=== PATIENT | female | born 1960 | race Caucasian/White ===

== ENCOUNTER 2016-08-08 13:06 | Observation (INO) | payer BC, OTHER ==
[~2016-08-08 13:06] MED LIST: HYDROmorphONE/DILAUDID 1 MG/ML SYR IVP ONE
--- NOTE | 2016-08-08 14:05 | EDPHY ---
H & P Stated Complaint: 08/04/16 cervical fusion Time Seen by Provider: 08/08/16 13:45 HPI/ROS: CHIEF COMPLAINT: Difficulty swallowing, neck pain decreased p.o. intake HISTORY OF PRESENT ILLNESS: This is a 55-year-old female presenting to the emergency department complaining of difficulty swallowing unable tolerate p.o. intake. Patient had a cervical fusion C3-4 C5-6 on August 04, discharged on August 05. Patient states since discharge she feels like she is worsening instead of doing better. Generalized weakness. Denies any chest pain or difficulty breathing. Patient's states she has been a little ataxic not able to catch her balance since the surgery. REVIEW OF SYSTEMS: Constitutional: No fever. chills. Eyes: No discharge. ENT: No sore throat. Difficulty swallowing Cardiovascular: No chest pain, no palpitations. Respiratory: No cough, no shortness of breath. Gastrointestinal: No abdominal pain, no vomiting. Genitourinary: No difficulty urinating, last BM 5 1 Musculoskeletal: No back pain. Neck pain with neck swelling Skin: No rashes. Neurological: Intermittent headache. Source: Patient - Personal History LMP (Females 10-55): Hysterectomy Current Tetanus/Diphtheria Vaccine: Yes Current Tetanus Diphtheria and Acellular Pertussis (TDAP): Yes - Medical/Surgical History Hx Asthma: No Hx Chronic Respiratory Disease: No Hx Diabetes: No Hx Cardiac Disease: No Hx Renal Disease: No Hx Cirrhosis: No Hx Alcoholism: No Hx HIV/AIDS: No Hx Splenectomy or Spleen Trauma: No Other PMH: cervical fusion, hysterectomy - Social History Smoking Status: Former smoker - Physical Exam Exam: General Appearance: Alert, no distress. Eyes: Pupils equal and round no pallor or injection. ENT, Mouth: Mucous membranes moist. Respiratory: There are no retractions, lungs are clear to auscultation. Cardiovascular: Regular rate and rhythm. Gastrointestinal: Abdomen is soft and nontender, no masses, hypoactive bowel sounds Neurological: No focal deficits. Patient ambulatory slow gait Skin: Warm and dry, no rashes. Musculoskeletal: Neck swelling, incision sites noted no erythema wearing an [place] collar. Extremities: symmetrical, full range of motion. Psychiatric: Patient is oriented X 3, there is no agitation. Constitutional: Initial Vital Signs Temperature (C) 37.2 C 08/08/16 13:11 Heart Rate 102 H 08/08/16 13:11 Respiratory Rate 18 08/08/16 13:11 Blood Pressure 113/83 H 08/08/16 13:11 O2 Sat (%) 93 08/08/16 13:11 O2 Delivery Mode Room Air Allergies/Adverse Reactions: No Known Allergies Allergy (Unverified 08/08/16 13:11) Home Medications: Medication Instructions Recorded ALPRAZolam [Xanax 1 MG (*)] 1 mg PO TID PRN 08/08/16 Doxepin HCl [Sinequan 50 MG (*)] 50 mg PO HS PRN 08/08/16 Levothyroxine [Synthroid 100 mcg 100 mcg PO DAILY 08/08/16 (*)] Venlafaxine Xr [Effexor Xr 75MG 75 mg PO DAILY 08/08/16 (*)] oxyCODONE HCL [Oxycodone HCl ER] 20 mg PO TID 08/08/16 oxyCODONE IR [Oxycodone Ir (*)] 20 mg PO Q6H PRN 08/08/16 Medical Decision Making ED Course/Re-evaluation: Discussed the plan of care: IV fluids for dehydration, CBC, BMP 1415: Spoke with Getachew AREVALO on the Neurosurgery service for plan 1430: Spoke with Getachew AREVALO with Dr. Zhou neuro-surg patient [facility] under their service. 1430: Discussed admit plan of care with patient Differential Diagnosis: Other differential diagnosis considered but not limited to dysphagia, altered mental status and sepsis - Data Points Medications Given: Discontinued Medications Dexamethasone (Decadron Injection) 10 mg IVP EDNOW ONE Stop: 08/08/16 14:30 Last Admin: 08/08/16 15:10 Dose: 10 mg Hydromorphone HCl (Dilaudid) 0.5 mg IVP EDNOW ONE Stop: 08/08/16 08:01 Last Admin: 08/08/16 15:10 Dose: 0.5 mg Morphine Sulfate (Morphine) 1 mg IVP EDNOW ONE Stop: 08/08/16 14:03 Last Admin: 08/08/16 14:20 Dose: 1 mg Departure - Departure Disposition: [facility] Inpatient Acute Clinical Impression: Postoperative pain, Dehydration Condition: Good
[2016-08-08] MEDS ORDERED: NS 1,000 ML IV SCH (14:15)
[2016-08-08] MEDS ORDERED: DEXAMETHASONE 10 MG/ML VIAL IVP ONE (14:29)
[2016-08-08] MEDS ORDERED: HYDROmorphONE/DILAUDID 1 MG/ML SYR ONE (15:03)
[2016-08-08] MEDS ORDERED: MAGNESIUM HYDROXIDE 30 ML UDCUP PO PRN (15:37)
[2016-08-08] MEDS ORDERED: MAG HYDROX/AL HYDROX/SIMETH 30 ML UDCUP PO PRN (15:37)
[2016-08-08] MEDS ORDERED: ACETAMINOPHEN 325 MG TAB PO PRN (15:37)
[2016-08-08] MEDS ORDERED: ONDANSETRON DISINTEGRATING 4 MG TAB PO PRN (15:37)
[2016-08-08] MEDS ORDERED: BISACODYL 10 MG SUPP PR PRN (15:37)
[2016-08-08] MEDS ORDERED: ONDANSETRON 4 MG/2 ML VIAL IVP PRN (15:37)
[2016-08-08] MEDS ORDERED: diphenhydrAMINE 25 MG CAP PO PRN (15:37)
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
[2016-08-08] MEDS: ENOXAPARIN 40 MG/0.4 ML SYR SC SCH (17:04)
[2016-08-08 17:17] LABS: % IMMATURE GRANULYOCYTES 0.3 % (0.0-1.1); ABSOLUTE IMMATURE GRANULOCYTES 0.02 10^3/uL (0.00-0.10); ADD DIFF? NO; ADD MORPH? NO; ADD SCAN? NO; ATYPICAL LYMPHOCYTE FLAG 0 (0-99); FRAGMENT RBC FLAG 0 (0-99); HEMATOCRIT 36.8 % (38.0-47.0); HEMOGLOBIN 12.4 g/dL (12.6-16.3); LEFT SHIFT FLG 0 (0-99); LIPEMIA HEMOLYSIS FLAG 80 (0-99); MEAN CELL HEMOGLOBIN CONCENTR. 33.7 g/dL (32.4-36.7); MEAN CELL VOLUME 95.1 fL (81.5-99.8); MEAN PLATELET VOLUME 10.5 fL (8.7-11.7); PLATELET CLUMPS FLAG 0 (0-99); PLATELET COUNT 248 10^3/uL (150-400); RED BLOOD CELL COUNT 3.87 10^6/uL (4.18-5.33); RED CELL DISTRIBUTION WIDTH 12.4 % (11.5-15.2)
[2016-08-08] MEDS: POLYETHYLENE GLYCOL 3350 17 GM PKT PO SCH ×2 (17:28→20:25)
[2016-08-08 17:47] LABS: ANION GAP 5 mEq/L (8-16); CALCIUM 9.1 mg/dL (8.5-10.4); CARBON DIOXIDE 28 mEq/l (22-31); CHLORIDE 102 mEq/L (97-110); CREATININE 0.8 mg/dL (0.6-1.0); GLOMERULAR FILTRATION RATE > 60; GLUCOSE 99 mg/dL (70-100); POTASSIUM 5.1 mEq/L (3.5-5.2); SODIUM 135 mEq/L (134-144)
[2016-08-08] MEDS: D5W NS W/ 20 KCl/L 1,000 ML IV SCH (19:11)
[2016-08-08] MEDS: OXYCODONE/APAP 5/325 TAB PO PRN ×2 (19:56→23:20)
[2016-08-08] MEDS: SENNOSIDES/DOCUSATE SODIUM TAB PO SCH (20:24)
[2016-08-08] MEDS: FAMOTIDINE 20 MG/NACL 50 ML IV SCH (20:25)
[2016-08-09] MEDS: D5W NS W/ 20 KCl/L 1,000 ML IV SCH (04:14)
[2016-08-09] MEDS: OXYCODONE/APAP 5/325 TAB PO PRN ×2 (06:34→11:09)
[2016-08-09 08:45] VITALS: BP 137/87; PULSE 83; RESP 14; TEMP 97.9; O2SAT 99
[2016-08-09] MEDS: ENOXAPARIN 40 MG/0.4 ML SYR SC SCH (09:24)
[2016-08-09] MEDS: POLYETHYLENE GLYCOL 3350 17 GM PKT PO SCH (09:25)
[2016-08-09] MEDS: SENNOSIDES/DOCUSATE SODIUM TAB PO SCH (09:25)
[2016-08-09] MEDS: FAMOTIDINE 20 MG/NACL 50 ML IV SCH (09:30)
[2016-08-09] MEDS ORDERED: oxyCODONE IR 5 MG TAB PO PRN (09:47)
[2016-08-09] MEDS ORDERED: DOXEPIN HCL 50 MG CAP PO PRN (09:47)
[2016-08-09] MEDS ORDERED: ALPRAZolam 1 MG TAB PO PRN (09:47)
--- NOTE | 2016-08-09 11:41 | SOAPPROG ---
SOAP Progress Note Assessment/Plan: Assessment: Hosp day 1 s/p C3-6 ACDF doing much better today able to swallow pain well controlled ambulatory Plan: continue hard collar pt to maintain soft texture diet DC home today follow up as previously scheduled red flag symptoms and medication reviewed with pt and family Subjective: lying in bed, pain well controlled no neuro changes Objective: Vital Signs Temp Pulse Resp BP Pulse Ox 36.6 C 83 14 137/87 H 99 08/09/16 08:00 08/09/16 08:00 08/09/16 08:00 08/09/16 08:00 08/09/16 08:00 Laboratory Results 08/08/16 17:08 08/08/16 17:08 08/08/16 08/09/16 08/10/16 05:59 05:59 05:59 Intake Total 2697 Balance 2697 NEURO: A+ox4 speech improved and clear 5/5 bilateral upper ext, sens +LT ambulatory Incision: CDI. steri strip in place ICD10 Worksheet Patient Problems: Problems Problem Status Onset Dehydration Acute Postoperative pain Acute
[2016-08-10] MEDS ORDERED: LEVOTHYROXINE 100 MCG TAB PO SCH (09:00)
[2016-08-10] MEDS ORDERED: VENLAFAXINE XR 75 MG CAP PO SCH (09:00)
== END 2016-08-09 13:26 | disposition home or self-care (01) ==
LOC: INTOOBSV 14:29 → F3N 16:10
PROVIDERS: ADMIT Neurological Surgery; ATTEND Neurological Surgery
DX: E86.0 Dehydration (principal); R13.19 Other dysphagia; M54.2 Cervicalgia; Z98.1 Arthrodesis status; Z87.891 Personal history of nicotine dependence; K58.9 Irritable bowel syndrome, unspecified; K86.89 Other specified diseases of pancreas
CPT/HCPCS: 96374; 97161-GP; J1170; J1650

== ENCOUNTER 2017-07-16 07:15 | Inpatient (IN) | payer BC, OTHER ==
[~2017-07-16 07:15] MED LIST changes: -HYDROmorphONE/DILAUDID 1 MG/ML SYR IVP ONE; +TRANEXAMIC ACID 1,000 MG in NS (SYRINGE) 50 ML IV ONE
[2017-07-16] MEDS ORDERED: fentaNYL 100 MCG/2 ML INJ IT ONE (08:07)
[2017-07-16] MEDS ORDERED: ceFAZolin 2 GM/SWFI 2 GM/20 ML SYR IVP ONE (08:07)
[2017-07-16] MEDS ORDERED: morphINE PF 5 MG/10 ML INJ IT ONE (08:07)
[2017-07-16] MEDS ORDERED: LR 1,000 ML IV ONE (08:08)
[2017-07-16] MEDS ORDERED: LIDOCAINE 1% 2 ML INJ ID PRN (08:08)
[2017-07-16] MEDS ORDERED: MIDAZOLAM 2 MG/2 ML VIAL IVP ONE (09:41)
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
[2017-07-16] MEDS ORDERED: THROMBIN (BOVINE) 5,000 UNIT VIAL TP ONE (09:53)
[2017-07-16] MEDS ORDERED: BACITRACIN 50,000 UNITS/10 ML SYR IRR ONE (09:53)
[2017-07-16] MEDS ORDERED: BUPIVACAINE 0.25% 30 ML SDV ONE (09:53)
[2017-07-16] MEDS ORDERED: CITRATE DEXTROSE SOLN 500 ML BAG ONE (09:53)
[2017-07-16] MEDS ORDERED: THROMBIN (BOVINE) 20,000 UNIT VIAL TP ONE (10:04)
[2017-07-16] MEDS ORDERED: DEXAMETHASONE 4 MG/ML VIAL ONE (10:20)
[2017-07-16] MEDS ORDERED: HYDROmorphONE/DILAUDID 2 MG/ML INJ ONE (10:20)
[2017-07-16] MEDS ORDERED: PHENYLEPHRINE HCL 100 MCG/ML SYR ONE (10:20)
[2017-07-16] MEDS ORDERED: ROCURONIUM 50 MG/5 ML VIAL ONE (10:20)
[2017-07-16] MEDS ORDERED: fentaNYL 100 MCG/2 ML INJ ONE ×3 (10:20→12:56)
[2017-07-16] MEDS ORDERED: ONDANSETRON 4 MG/2 ML VIAL ONE (10:20)
[2017-07-16] MEDS ORDERED: PROPOFOL 200 MG/20 ML VIAL ONE (10:21)
--- NOTE | 2017-07-16 11:26 | PDHPUP ---
History & Physical Update H&P update statement: This history and physical update is based on an assessment of the patient which was completed after admission or registration (within 24 hours), but prior to the surgery/procedure. H&P update: H&P reviewed & patient examined, no change in patient's condition since H&P completed
[2017-07-16] MEDS ORDERED: morphINE PF 5 MG/10 ML INJ ONE (12:56)
[2017-07-16] MEDS ORDERED: NALOXONE HCL 0.4 MG/ML INJ IVP PRN ×2 (13:45→14:47)
[2017-07-16] MEDS ORDERED: ONDANSETRON 4 MG/2 ML VIAL IVP PRN ×2 (13:45→14:35)
[2017-07-16] MEDS ORDERED: PROMETHAZINE HCL 25 MG/ML INJ IVP PRN (13:45)
[2017-07-16] MEDS ORDERED: fentaNYL 100 MCG/2 ML INJ IVP PRN (13:45)
[2017-07-16] MEDS ORDERED: HYDROmorphONE/DILAUDID 1 MG/ML INJ IVP PRN (13:45)
[2017-07-16] MEDS ORDERED: HYDROCODONE/APAP 5/325 TAB PO PRN (13:45)
[2017-07-16] MEDS ORDERED: ceFAZolin 1 GM VIAL ONE (14:07)
[2017-07-16] MEDS ORDERED: HYDROmorphONE/DILAUDID 2 MG/ML INJ IVP PRN (14:26)
[2017-07-16] MEDS ORDERED: morphINE PCA 30 MG/30 ML PCA IV PRN (14:35)
[2017-07-16] MEDS ORDERED: diphenhydrAMINE 25 MG CAP PO PRN (14:35)
[2017-07-16] MEDS ORDERED: BISACODYL 10 MG SUPP PR PRN (14:35)
[2017-07-16] MEDS ORDERED: ONDANSETRON DISINTEGRATING 4 MG TAB PO PRN (14:35)
[2017-07-16] MEDS ORDERED: LACTULOSE 20 GM/30 ML UDCUP PO PRN (14:35)
[2017-07-16] MEDS ORDERED: MAGNESIUM HYDROXIDE 30 ML UDCUP PO PRN (14:35)
--- NOTE | 2017-07-16 14:45 | SOAPPROG ---
SOAP Progress Note Assessment/Plan: POST OP CHECK: Assessment: Doing well s/p L3-5 TLIF Plan: CPM in PACU transfer to floor per protocol 07/16/17 14:42 Subjective: awake,alert, comfortable Objective: Vital Signs Temp Pulse Resp BP Pulse Ox 36.4 C 72 16 114/86 H 94 07/16/17 08:50 07/16/17 09:43 07/16/17 09:43 07/16/17 09:43 07/16/17 09:43 Neuro: MCGUIRE spontaneously conversant sensation +LT Vitals: BP: 92/64 HR: 111 02: 97 % face mask ICD10 Worksheet Patient Problems: Problems Problem Status Onset Dehydration Acute Postoperative pain Acute
--- NOTE | 2017-07-16 14:46 | POSTANESTH ---
Post Anesthetic Evaluation Cardiovascular Status: Normal, Stable Respiratory Status: Normal, Stable Level of Consciousness/Mental Status: Can Participate in Eval Pain Control: Adequate, Prn Tx Ordered Nausea/Vomiting Control: Adequate, Prn Tx Ordered Complications Possibly Related to Anesthesia: None Noted
--- NOTE | 2017-07-16 14:47 | POSTOPPROG ---
Post Op Note Date of Operation: 07/16/17 Surgeon: Nicolas Seymour Language Tutor: QUIANA Maldonado Anesthesiologist: Pete Anesthesia: GET(General Endotracheal) Pre-op Diagnosis: L3-5 DJD, stenosis, spondylolisthesis Post-op Diagnosis: same Indication: Back and right leg pain Procedure: L3/4,4/5 TLIF Findings: Severe stenosis, DJD Inf/Abcess present in the surg proc area at time of surgery?: No EBL: 100-500 Total fluids administered: 2500ml Complications: none Drains: Mert Mathur (to bulb suction)
[2017-07-16] MEDS: oxyCODONE IR 5 MG TAB PO PRN ×2 (16:55→23:21)
[2017-07-16] MEDS: POLYETHYLENE GLYCOL 3350 17 GM PKT PO SCH ×2 (18:12→22:37)
[2017-07-16] MEDS: DOXEPIN HCL 50 MG CAP PO SCH (20:13)
[2017-07-16] MEDS: SENNOSIDES/DOCUSATE SODIUM TAB PO SCH (20:14)
[2017-07-16] MEDS: FAMOTIDINE 20 MG TAB PO SCH (20:14)
[2017-07-16] MEDS: morphINE SR 15 MG TAB PO SCH (20:14)
--- NOTE | 2017-07-16 20:19 | GOP ---
[f rep st] OPERATIVE REPORT DATE OF OPERATION: 07/16/2017 SURGEON: Nicolas Seymour MD NEUROSURGEON: Nicolas Seymour MD ELECTRIC POWER LINE REPAIRER: QUIANA Orosco ANESTHESIA: General endotracheal. PREOPERATIVE DIAGNOSIS: 1. Severe multilevel lumbar degenerative joint disease and spinal stenosis with lateral recess impin gement. 2. Intractable back pain and left greater than right lower extremity radicular symptoms. 3. Failed conservative care. POSTOPERATIVE DIAGNOSIS: 1. Severe multilevel lumbar degenerative joint disease and spinal stenosis with lateral recess impin gement. 2. Intractable back pain and left greater than right lower extremity radicular symptoms. 3. Failed conservative care. PROCEDURE PERFORMED: 1. Left-sided far lateral transpedicular decompression at the L3-4 and L4-5 levels with L3 through 5 posterior segmental (pedicle screw and axle device) fixation and posterolateral fusion with local au tograft, bone morphogenic protein, and morselized allograft. 2. L3-4 and L4-5 posterior/transforaminal lumbar interbody fusion with 2 structural PEEK interbody s pacers, local autograft, and morselized allograft at each level. 3. Use of intraoperative microscopy, fluoroscopy, and computer volumetric stereotactic navigation wi th intraoperative neurophysiologic testing. 4. Injection of intrathecal narcotic analgesics and subcutaneous and intramuscular local anesthesia for postoperative pain control. FINDINGS: ESTIMATED BLOOD LOSS: 125 cc. INDICATIONS: The patient is a 56-year-old woman, with intractable low back pain and left greater catrina n right lower extremity radicular and neurogenic claudication discomfort secondary to multilevel dege nerative joint disease, spinal stenosis, and lateral recess impingement. She has failed extensive co nservative care and presents now for surgical decompression and stabilization through a mini open john devries. DESCRIPTION OF PROCEDURE: After informed consent was obtained, the patient was taken to the operatin g room and placed in the prone position on the Mert table. The lumbosacral area was prepped and d raped in a sterile fashion. After fluoroscopic localization of correct levels, the subcutaneous and intramuscular tissues were infiltrated with local anesthesia. A midline linear incision was then cre ated at the level of the L3 through 5 levels. This was carried down to the fascial layer, which was then incised using the monopolar electrocautery and carried in a subperiosteal plane along the spinou s processes and out the lamina bilaterally. Intraoperative fluoroscopy was utilized to verify the co rrect levels. Following this, the dissection was carried out over the facet joints. The microscope was then brought in and under high-power microscopic visualization, left-sided far lateral transpedic ular decompressions were performed with complete unroofing of the facet joints at L3-4 and L4-5. The L3, L4, and L5 neural foramina were widely decompressed. Following this, the [employer] system was brought in and using computer volumetric stereotactic navigation, pedicle screws were placed at L3, L4, and L5 on the left. Short rods were then placed first at L3-4, then at L4-5, with some distraction created across the interspaces, during which time complete diskectomies were perform ed, with preparation of the endplates and placement of 2 structural PEEK interbody spacers, local aut ograft, and bone morphogenic protein for L3-4 and L4-5 posterior/transforaminal lumbar interbody fusi ons. The short rods were then removed and a longer alba spanning the entire construct was placed and secured under a slight amount of compression in order to facilitate bony union and to minimize the po tential for posterior graft migration. Axle devices were then placed at the L3-4 and L4-5 levels in lieu of right-sided pedicle screws in order to maximize the bony surface area for the posterolateral fusion and to minimize the potential for a cortical breach and postoperative root irritation. Follow ing this, the wound was copiously irrigated again with antibiotic irrigation. 200 mcg of Duramorph a long with 50 mcg of fentanyl were injected intrathecally for postoperative pain control. The remaini ng lamina and facet joints were extensively decorticated and the residual local autograft, along with bone morphogenic protein and morselized allograft was placed out laterally for posterolateral fusion at the L3 through 5 levels. The subcutaneous and intramuscular tissues were re-infiltrated with loc al anesthesia. A drain was placed, and the wound was closed in a layered fashion using interrupted V icryl sutures, followed by Steri-Strips on the skin. COMPLICATIONS: None. DISPOSITION: The patient is currently in the process of being repositioned for extubation. /[id number]/MODL
[2017-07-16] MEDS: GABAPENTIN 300 MG CAP PO SCH (21:54)
[2017-07-16] MEDS: ceFAZolin 2 GM/SWFI 2 GM/20 ML SYR IVP SCH (21:57)
[2017-07-16] MEDS ORDERED: ceFAZolin 2 GM/DEXTROSE 100 ML IV SCH (22:00)
[2017-07-17] MEDS: ALPRAZolam 1 MG TAB PO SCH ×2 (03:02→18:28)
[2017-07-17 04:42] LABS: PLATELET COUNT 236 10^3/uL (150-400)
[2017-07-17] MEDS: GABAPENTIN 300 MG CAP PO SCH ×3 (05:25→22:14)
[2017-07-17] MEDS: ceFAZolin 2 GM/SWFI 2 GM/20 ML SYR IVP SCH (05:25)
--- NOTE | 2017-07-17 08:24 | SOAPPROG ---
SOAP Progress Note Assessment/Plan: Assessment: POD #1 Doing well s/p L3-5 TLIF Pain well controlled Plan: PT/OT LSO when OOB lumbar xrays today Continue JAYNE drain Subjective: awake, alert, pain well controlled. Feeling good this AM. denies new numbness, tingling or weakness Objective: Vital Signs Temp Pulse Resp BP Pulse Ox 36.8 C 86 15 99/60 L 95 07/17/17 07:54 07/17/17 07:54 07/17/17 07:54 07/17/17 07:54 07/17/17 07:54 Laboratory Results 07/17/17 04:30 07/17/17 04:30 07/16/17 07/17/17 07/18/17 05:59 05:59 05:59 Intake Total 3770 Output Total 4200 Balance -430 Neuro: MCGUIRE, sens +LT oriented x 4 follows commands Dressing: CDI JAYNE: 300ml ICD10 Worksheet Patient Problems: Problems Problem Status Onset Dehydration Acute Postoperative pain Acute
[2017-07-17] MEDS ORDERED: LEVOTHYROXINE 100 MCG TAB PO SCH (09:00)
[2017-07-17] MEDS: SENNOSIDES/DOCUSATE SODIUM TAB PO SCH ×2 (09:55→22:13)
[2017-07-17] MEDS: ESTRADIOL 1 MG TAB PO SCH (09:55)
[2017-07-17] MEDS: oxyCODONE IR 5 MG TAB PO PRN ×4 (09:55→22:14)
[2017-07-17] MEDS: morphINE SR 15 MG TAB PO SCH ×2 (09:55→22:13)
[2017-07-17] MEDS: FAMOTIDINE 20 MG TAB PO SCH ×2 (09:55→22:13)
[2017-07-17] MEDS: VENLAFAXINE XR 75 MG CAP PO SCH (09:56)
[2017-07-17] MEDS: ENOXAPARIN 40 MG/0.4 ML SYR SC SCH (10:29)
[2017-07-17] MEDS: POLYETHYLENE GLYCOL 3350 17 GM PKT PO SCH ×3 (10:30→23:02)
--- NOTE | 2017-07-17 18:11 | ASMTCMCOM ---
CM Note CM Note Notes: Anticipate dc home independently CM will follow if needs/changes. Date Signed: 07/17/2017 06:10 PM Electronically Signed By:Amada Joaquin RN
[2017-07-17] MEDS: DOXEPIN HCL 50 MG CAP PO SCH (18:29)
[2017-07-17] MEDS ORDERED: ACETAMINOPHEN 325 MG TAB PO PRN (20:18)
[2017-07-18] MEDS: oxyCODONE IR 5 MG TAB PO PRN ×3 (02:43→13:52)
[2017-07-18] MEDS: GABAPENTIN 300 MG CAP PO SCH ×2 (05:36→13:41)
[2017-07-18] MEDS ORDERED: LEVOTHYROXINE 100 MCG TAB PO SCH (06:00)
[2017-07-18] MEDS: ESTRADIOL 1 MG TAB PO SCH (08:32)
[2017-07-18] MEDS: morphINE SR 15 MG TAB PO SCH (08:32)
[2017-07-18] MEDS: SENNOSIDES/DOCUSATE SODIUM TAB PO SCH (08:32)
[2017-07-18] MEDS: FAMOTIDINE 20 MG TAB PO SCH (08:32)
[2017-07-18] MEDS: VENLAFAXINE XR 75 MG CAP PO SCH (08:32)
[2017-07-18] MEDS: ENOXAPARIN 40 MG/0.4 ML SYR SC SCH (08:33)
[2017-07-18] MEDS: POLYETHYLENE GLYCOL 3350 17 GM PKT PO SCH (09:11)
--- NOTE | 2017-07-18 10:23 | NEUSURGPN ---
Date of Surgery: 07/16/17 Post Op Day: 2 Assessment/Plan: POD #2 Doing well s/p L3-5 TLIF Pain well controlled stale post op films Plan: PT/OT LSO when OOB dispo later today send home with JAYNE drain. Subjective: doing well, pain is well controlled. no acute complaints Objective: NAD AAOX4 VSS EOMI, PEARLA CNii-xii grossly intact MAEx4, 5/5= SILT Incision cdi jpx1 140 out - Physician Discussed Patient with : [facility] Physical Exam - Vitals, I&O, Labs I and O 07/17/17 07/18/17 07/19/17 05:59 05:59 05:59 Intake Total 3770 500 Output Total 4200 140 Balance -430 360 Weight 58.967 kg Intake: Oral (ml) 1070 500 IV Intake (ml) 2700 Output: Urine (ml) 3700 Catheter 3700 Estimated Blood Loss (ml) 200 JAYNE Drain Output (ml) 300 140 Back Mert Mathur 300 140 Other: Intake Quantity Yes Sufficient Number of Voids Toilet 1 Vital Signs Temp Pulse Resp BP Pulse Ox 37.1 C 90 16 103/70 91 L 07/18/17 08:39 07/18/17 07:40 07/18/17 07:40 07/18/17 07:40 07/18/17 07:40 Laboratory Results 07/17/17 04:30 07/17/17 04:30 ICD10 Worksheet Patient Problems: Problems Problem Status Onset Dehydration Acute Postoperative pain Acute
--- NOTE | 2017-07-18 13:22 | PDHOMEO2F ---
Home Oxygen Face to Face Home Orders: I certify that a physician or a nurse practitioner or physician's household assistant has had a [id number] encounter with this patient on the date of this order due to the diagnosis listed, which relates to the primary reason the patient requires home oxygen. Alternative treatments have been tried, or considered, and deemed ineffective. It is anticipated that supplemental oxygen will result in improvement with treatment. Home oxygen qualifying diagnosis: desaturation on Room air SpO2 on room air (%): 85% Frequency of home oxygen needed: continuous Home oxygen liters per minute: 2L Home oxygen delivery device: nasal cannula Concentrator: Yes E-tanks for mobility and back up: Yes If ordering portable O2, is the patient mobile in the home?: Yes I certify that, based on these findings, the home oxygen is medically necessary for this patient for the following length of time. Length of time home oxygen needed: 1 month
--- NOTE | 2017-07-18 13:40 | ASMTCMCOM ---
CM Note CM Note Notes: Pt to DC today with no needs. Date Signed: 07/18/2017 01:40 PM Electronically Signed By:Edita Forrest LCSW
[2017-07-18 15:43] VITALS: BP 102/71
== END 2017-07-18 17:24 | disposition home or self-care (01) | DRG 460 ==
LOC: F3N 07:36
PROVIDERS: ADMIT Neurological Surgery; ATTEND Neurological Surgery
PROC: 8E0WXBZ Computer Assisted Procedure of Trunk Region (ICD-10-PCS; principal; 2017-07-16 09:15)
PROC: 0SG10AJ Fusion of 2 or more Lumbar Vertebral Joints with Interbody Fusion Device, Posterior Approach, Anterior Column, Open Approach (ICD-10-PCS; principal; 2017-07-16 09:15)
PROC: 0ST20ZZ Resection of Lumbar Vertebral Disc, Open Approach (ICD-10-PCS; principal; 2017-07-16 09:15)
PROC: 00NY0ZZ Release Lumbar Spinal Cord, Open Approach (ICD-10-PCS; principal; 2017-07-16 09:15)
PROC: 4A1004G Monitoring of Central Nervous Electrical Activity, Intraoperative, Open Approach (ICD-10-PCS; principal; 2017-07-16 09:15)
DX: M51.36 Other intervertebral disc degeneration, lumbar region (principal); M48.061 Spinal stenosis, lumbar region without neurogenic claudication; E03.9 Hypothyroidism, unspecified; F41.8 Other specified anxiety disorders; K58.9 Irritable bowel syndrome, unspecified; M51.16 Intervertebral disc disorders with radiculopathy, lumbar region; M47.896 Other spondylosis, lumbar region; M48.07 Spinal stenosis, lumbosacral region
CPT/HCPCS: 97161-GP; 97165-GO; C1713; C1762; J0171; J0690; J1100; J1170; J1200; J1650; J2250; J2274; J2370; J2405; J2704; J3010; J7060

== ENCOUNTER → 2017-08-21 | Outpatient (CLI) | payer BC, OTHER | LOC: FIMAGING 14:00 | PROVIDERS: ATTEND Physician Assistant Surgical | DX: Z98.1 Arthrodesis status (principal) ==